=== PATIENT | female | born 1945 | race Caucasian/White ===

== ENCOUNTER → 2018-08-27 | Outpatient (CLI) | payer MEDICARE, OTHER ==
[~2018-08-27] MED LIST: ASPI81TA85 PO; BENI40TA30 PO; CALTTAB10 PO; CELE1CAP9 PO; CENTTAB PO; DILT1CAP5 PO; ESTRACE VAGINAL PV; FERR325T3 PO; LUNE2TAB23 PO; PANT40TA3 PO; PERC5TAB12 PO; TYLE325T5 PO; VICO7.5T11 PO; VITA100066 PO; VITA100T86 PO
--- NOTE | 2018-08-27 13:39 | REPMRS ---
Patient History The patient states she has not had a clinical breast exam in over a year. Patient is nulliparous. Family history of unknown cancer at age 60 in mother. Took estrogen for 7 years. 3D TOMOSYNTHESIS WAS PERFORMED. Digital Woman Screen Mammo: August 27, 2018 - Exam #: [id number] Bilateral CC and MLO view(s) were taken. Technologist: Brittany Clements, Technologist Prior study comparison: February 24, 2017, digital woman screen mammo performed at [facility]. January 21, 2016, digital woman screen mammo performed at [facility]. FINDINGS: There are scattered fibroglandular densities. There has been no change in the appearance of the mammogram from the prior studies. There is a mild amount of residual fibroglandular tissue which is fairly symmetric. There is no interval development of dominant mass, architectural distortion, or clustered microcalcification suggestive of malignancy. Assessment: BI-RADS/ACR category 1 mammogram. Negative Mammogram. Recommendation Routine screening mammogram in 1 year (for women over age 40). This mammogram was interpreted with the aid of an FDA-approved computer-aided dectection system. Electronically Signed By: Ed Guevara MD 08/27/18 [id number]
== END ==
LOC: M WHC 12:51
PROVIDERS: ATTEND Internal Medicine
DX: Z12.31 Encounter for screening mammogram for malignant neoplasm of breast (principal); Z92.23 Personal history of estrogen therapy; Z80.9 Family history of malignant neoplasm, unspecified

== ENCOUNTER → 2019-12-23 | Outpatient (CLI) | payer MEDICARE, BC ==
[~2019-12-23] MED LIST changes: -ASPI81TA85 PO; +ASPI81TA86 PO; +PANT40TA29 PO; -PANT40TA3 PO; -VICO7.5T11 PO; +VICO7.5T12 PO
--- NOTE | 2019-12-23 12:42 | REPMRS ---
Patient History The patient states she has not had a clinical breast exam in over a year. Family history of unknown cancer at age 60 in mother. Took estrogen for 7 years. Digital Woman Screen Mammo: December 23, 2019 - Exam #: [id number] Bilateral CC and MLO view(s) were taken. Technologist: Violeta Tony, Technologist Prior study comparison: August 27, 2018, bilateral digital woman screen mammo performed at [facility]. February 24, 2017, digital woman screen mammo performed at [facility]. January 21, 2016, digital woman screen mammo performed at [facility]. FINDINGS: The breast tissue is heterogeneously dense. This may lower the sensitivity of mammography. The Volpara volumetric breast density category is: C. There is a moderate amount of heterogeneously dense fibroglandular tissue which is fairly symmetric. There is no interval development of dominant mass, architectural distortion, or grouped microcalcification typical of malignancy. There has been no change in the appearance of the mammogram from the prior studies. Assessment: BI-RADS/ACR category 1 mammogram. Negative Mammogram. Recommendation Routine screening mammogram of both breasts in 1 year (for women over age 40). This patient's Lifetime Breast Cancer RIsk is estimated at 5.6 %. This mammogram was interpreted with the aid of an FDA-approved computer-aided dectection system. Electronically Signed By: William Wick MD 12/23/19 [id number]
== END ==
LOC: M WHC 11:33
PROVIDERS: ATTEND Internal Medicine
DX: Z12.31 Encounter for screening mammogram for malignant neoplasm of breast (principal); Z80.8 Family history of malignant neoplasm of other organs or systems; Z92.23 Personal history of estrogen therapy

== ENCOUNTER → 2021-01-03 | Outpatient (CLI) | payer MEDICARE, BC ==
--- NOTE | 2021-01-03 12:31 | REPMRS ---
Patient History The patient states she had a clinical breast exam in December 2020. Family history of unknown cancer at age 60 in mother. Took estrogen for 7 years. Covid vaccine 05/30/20 left arm. 06/27/20 left arm. Patient states no breast complaints today. Patient has signed MRS History Sheet. Digital Woman Screen Mammo: January 03, 2021 - Exam #: [id number] Bilateral CC and MLO view(s) were taken. Technologist: RT Aarti Prior study comparison: December 23, 2019, bilateral digital woman screen mammo performed at [facility]. August 27, 2018, bilateral digital woman screen mammo performed at [facility]. FINDINGS: The breast tissue is heterogeneously dense. This may lower the sensitivity of mammography. Screening. Digital screening (2D) mammography was performed bilaterally in the CC and MLO projections. Additionally, breast tomosynthesis (3D mammography) was performed bilaterally in the CC and MLO projections. Todays exam was compared to the prior exam/exams. By history, the patient has no complaints of a palpable breast abnormality or other significant breast complaints. The breasts are unchanged in size and shape.Once again, dense heterogenous fibroglandular elements are seen bilaterally in a stable appearing pattern but to such a degree that the sensitivity of the mammogram in detecting cancer is decreased. There are no feliberto-soft tissue densities or spiculated masses. There is no internal architectural distortion. Once again, stable benign appearing calcifications are seen.There are no suspicious feliberto-calcific clusters. Skin thickening or nipple retraction is not present. IMPRESSION: BI-RADS Category 2- Benign Findings. There is no evidence of malignant alteration of the breasts. Followup examination recommended in one year. The Volpara volumetric breast density category is C, the breasts are heterogenously dense which may obscure small masses. This mammogram was read with the assistance of [employer],an FDA approved computer aided detection system for mammography. The lifetime Tyrer-Cuzick score is 5.2 % Negative x-ray reports should not delay surgical consultation if a dominant or clinically suspicious mass is present. Not all breast cancers can be identified by mammography. Therefore, we recommend that you continue to perform regular breast self-examination and physical examination and then promptly contact your physician of any concerns or changes. Adenosis and dense breasts may obscure an underlying neoplasm. Assessment: BI-RADS/ACR category 2 mammogram. Benign Findings. Recommendation Routine screening mammogram of both breasts in 1 year. Electronically Signed By: Galileo Patel DO 01/03/21 [id number]
== END ==
LOC: M WHC 10:52
PROVIDERS: ATTEND Nurse Practitioner Women's Health
DX: Z12.31 Encounter for screening mammogram for malignant neoplasm of breast (principal)
CPT/HCPCS: 77063; 77067; G0463

== ENCOUNTER → 2021-08-28 | Outpatient (CLI) | payer MEDICARE, BC | LOC: M WHC 10:40 | PROVIDERS: ATTEND Advanced Practice Midwife | DX: R23.4 Changes in skin texture (principal); N63.0 Unspecified lump in unspecified breast | CPT/HCPCS: 76642; 77066; G0279 ==

== ENCOUNTER → 2021-09-25 | Outpatient (CLI) | payer MEDICARE, BC | LOC: M WHC 10:19 | PROVIDERS: ATTEND Surgery | DX: N60.41 Mammary duct ectasia of right breast (principal); R23.4 Changes in skin texture; R92.8 Other abnormal and inconclusive findings on diagnostic imaging of breast ==

== ENCOUNTER → 2022-02-28 | Outpatient (REF) | payer MEDICARE, BC ==
[~2022-02-28] MED LIST changes: -BENI40TA30 PO; +OLME-3 PO
== END ==
LOC: M SFHCWAGY 13:17
PROVIDERS: ATTEND Advanced Practice Midwife
DX: R35.0 Frequency of micturition (principal)

== ENCOUNTER → 2022-02-28 | Outpatient (CLI) | payer MEDICARE, BC | LOC: M WHC 12:24 | PROVIDERS: ATTEND Nurse Practitioner Women's Health | DX: R92.8 Other abnormal and inconclusive findings on diagnostic imaging of breast (principal) ==

== ENCOUNTER → 2022-09-10 | Outpatient (CLI) | payer MEDICARE, BC ==
[~2022-09-10] MED LIST changes: -DILT1CAP5 PO; +DILT240C41 PO
== END ==
LOC: M WHC 12:42
PROVIDERS: ATTEND Student in an Organized Health Care Education/Training Program
DX: Z12.31 Encounter for screening mammogram for malignant neoplasm of breast (principal)

== ENCOUNTER → 2023-12-11 | Outpatient (CLI) | payer MEDICARE, BC ==
[~2023-12-11] MED LIST changes: +CELE0.09 PO; -CELE1CAP9 PO; -LUNE2TAB23 PO; +LUNE2TAB28 PO
== END ==
LOC: M WHC 13:34
PROVIDERS: ATTEND Advanced Practice Midwife
DX: Z12.31 Encounter for screening mammogram for malignant neoplasm of breast (principal); R92.323 Mammographic fibroglandular density, bilateral breasts

== ENCOUNTER → 2024-05-18 | Outpatient (REF) | payer MEDICARE, BC | LOC: M PLALAB 14:16 | PROVIDERS: ATTEND Advanced Practice Midwife | DX: N76.0 Acute vaginitis (principal) ==